=== PATIENT | female | born 1995 | race Caucasian/White ===

== ENCOUNTER → 2017-02-26 | Outpatient (CLI) | payer OTHER ==
--- NOTE | 2017-02-26 14:13 | REP ---
PA and lateral chest: There are no comparisons. The lung barrientos are clear. The cardiac size is normal The yessenia, mediastinum, and bony thorax are unremarkable. Impression: Negative PA and lateral chest. At the Signed by Ronen Muñiz MD 02/26/2017 02:05 P
[2017-02-26 18:19] LABS: BASO % 0.3 % (0.0-1.0); EOS # 0.2 10^3/uL (0.0-0.50); IMMATURE GRANULOCYTE % 0.3 % (0-0); LYMPH # 2.6 10^3/uL (1.5-6.5); LYMPH % 34.8 % (24.0-44.0); MEAN CORPUSCULAR HEMOGLOBIN 30.1 pg (27.0-33.0); MEAN CORPUSCULAR VOLUME 91.2 fl (80.0-96.0); MONO # 0.4 10^3/uL (0.0-0.8); MONO % 5.9 % (0.0-5.0); NEUTROPHILS # 4.1 10^3/uL (1.8-7.7); NEUTROPHILS % 55.7 % (36.0-66.0); PLATELET COUNT, AUTOMATED 409 10^3/uL (150-450); RED CELL DISTRIBUTION WIDTH 11.4 % (11.5-14.5); WHITE BLOOD COUNT 7.4 10^3/uL (4.0-10.0)
[2017-02-27 13:33] LABS: CONTROL LINE MONO RF C INT CTR LINE PRESENT
== END ==
LOC: M ADAMS 13:44
PROVIDERS: ATTEND Physician Assistant Medical
DX: J20.9 Acute bronchitis, unspecified (principal); J06.9 Acute upper respiratory infection, unspecified

== ENCOUNTER → 2020-02-29 | Outpatient (CLI) | payer SELFPAY | LOC: M LABSMTC 10:18 | PROVIDERS: ATTEND Pediatrics | DX: Z20.828 Contact with and (suspected) exposure to other viral communicable diseases (principal) ==